=== PATIENT | male | born 1975 | race Caucasian/White ===

== ENCOUNTER 2020-04-10 18:38 | Emergency (ER) | payer OTHER ==
[~2020-04-10] VITALS: Ht 170.2 cm; Wt 81.6 kg
[2020-04-10] MEDS ORDERED: IV NS 0.9% 1,000 ML BAG IV ONE (19:00)
[2020-04-10] MEDS ORDERED: LORAZEPAM INJ 2 MG/ML VIAL IVP ONE (19:00)
[2020-04-10] MEDS ORDERED: LORAZEPAM INJ 2 MG/ML VIAL ONE (19:11)
--- NOTE | 2020-04-10 19:22 | NUR ---
VIANNEY FROM STREET TO ER BED 13. AAOX4. NOT IN RESP DISTRESS. AMBULATORY. CAME IN FOR BIZAARE BEHAVIOR. PER EMS REPORT, PT WAS FOUND BY [employer]. UPON ASSESSMENT, PT DENIES ANY THOUGHT OF HURTING HIMSELF NOR OTHERS. PT ADMITS TO USING METH EARLIER @ 1400. PT IS COOPERATIVE AND COMPLIANT. WAS AT THE BEDSIDE FOR EVAL. ORDERS RECEIVED NOTED AND CARRIED OUT. IV LINE OBTAINED ON R HAND 20G. BLOOD DRAWN AND GIVEN TO DATABASE PROGRAMMER ANALYST AT BEDSIDE. MEDICATED ORDERED. PT BEING MONITORED
[2020-04-10 19:24] LABS: BASOPHILS % (AUTO) 0.4 % (0.0-2.0); EOSINOPHILS % (AUTO) 0.5 % (0.0-6.0); HEMATOCRIT 41 % (39-51); HEMOGLOBIN 13.5 g/dL (13.5-17.5); LYMPHOCYTES # (AUTO) 0.8 /CMM (0.8-4.8); LYMPHOCYTES % (AUTO) 7.1 % (20.0-44.0); MEAN CORPUSCULAR HGB CONC 33 g/dl (31.0-36.0); MEAN CORPUSCULAR VOLUME 88 fL (80-96); MONOCYTES # (AUTO) 0.5 /CMM (0.1-1.30); MONOCYTES % (AUTO) 4.6 % (2.0-12.0); NEUTROPHILS # (AUTO) 9.7 /CMM (1.8-8.9); NEUTROPHILS % (AUTO) 87.4 % (43.0-81.0); PLATELET COUNT (AUTO) 251 /CMM (150-450); RED BLOOD CELL COUNT(AUTO) 4.66 MIL/uL (4.5-6.0)
[2020-04-10 19:49] LABS: CREATINE KINASE, TOTAL 913 U/L (39-308)
[2020-04-10 19:52] LABS: ACETAMINOPHEN < 2 ug/ml (10-30); ALANINE AMINOTRANSFERASE 40 U/L (12-78); ALBUMIN 3.8 g/dL (3.4-5.0); ALCOHOL, BLOOD < 3 mg/dL (0-0); ALKALINE PHOSPHATASE 87 U/L (46-116); ASPARTATE AMINOTRANSFERASE 30 U/L (15-37); BILIRUBIN,DIRECT 0.1 mg/dL (0.0-0.2); BILIRUBIN,TOTAL 0.2 mg/dL (0.2-1.0); CALCIUM, SERUM 9.1 mg/dL (8.5-10.1); CARBON DIOXIDE 23 mmol/L (21-32); CHLORIDE 107 mmol/L (98-107); CREATININE 1.5 mg/dL (0.6-1.3); GLUCOSE 109 mg/dL (74-106); POTASSIUM 3.7 mmol/L (3.5-5.1); SALICYLATE 0.9 mg/dL (2.8-20.0); SODIUM SERUM 142 mmol/L (136-145); TOTAL PROTEIN, SERUM 7.3 g/dL (6.4-8.2); UREA NITROGEN, BLOOD 13 mg/dL (7-18)
--- NOTE | 2020-04-10 21:05 | NUR ---
URINE COLLECTED AND SENT TO LAB.
[2020-04-10 21:57] LABS: APPEARANCE,URINE Clear (CLEAR); BILIRUBIN,URINE Negative (NEGATIVE); BLOOD, URINE Negative Ery/uL (NEGATIVE); COLOR,URINE Yellow (YELLOW); KETONES,URINE Negative (NEGATIVE); LEUKOCYTE ESTERASE ,URINE Negative (NEGATIVE); NITRITE, URINE Negative (NEGATIVE); PROTEIN,URINE Trace mg/dl (NEGATIVE); UGLUCOSE Negative (NEGATIVE); UROBILINOGEN,URINE 0.2 EU/dL (0.2)
[2020-04-10] MEDS ORDERED: IV NS 0.9% 1,000 ML IV ONE (22:00)
[2020-04-10 22:20] LABS: BACTERIA,URINE Rare /HPF (None Seen); RBC,URINE NONE SEEN /HPF (0-2); SQUAMOUS EPITHELIAL CELL,UR Few /HPF (None Seen); WBC,URINE NONE SEEN /HPF (0-3)
--- NOTE | 2020-04-10 22:24 | NUR ---
COVID SWAB COLLECTED AND SENT TO LAB
[2020-04-10] MEDS ORDERED: IV NS 0.9% 500 ML BAG IV ONE (22:30)
[2020-04-10 23:03] LABS: CALCIUM, SERUM 8.2 mg/dL (8.5-10.1); CREATININE 1.2 mg/dL (0.6-1.3); POTASSIUM 3.6 mmol/L (3.5-5.1)
--- NOTE | 2020-04-11 01:25 | NUR ---
Note [place] in ED - 04/11/20 at 0358 by SOPHIA Patient given written and verbal discharge instructions. Patient verbalizes understanding of instructions. Patient is ambulatory with steady gait. Refuses offer of skilled nursing placement. Patient given list of available shelters in surrounding area.
--- NOTE | 2020-04-11 02:51 | NUR ---
PT RESTING COMFORTABLY IN BED. VSS. NO ACUTE DISTRESS NOTED. WILL CONTINUE TO MONITOR. SITTER AT BEDSIDE FOR SAFETY
--- NOTE | 2020-04-11 04:11 | NUR ---
Patient given written and verbal discharge instructions. Patient verbalizes understanding of instructions. Patient is ambulatory with steady gait. Refuses offer of assisted placement. Patient given list of available shelters in surrounding area.
[2020-04-11 04:12] VITALS: BP 134/87
== END 2020-04-11 04:12 | disposition home or self-care (01) ==
LOC: ER 18:40
DX: T43.621A Poisoning by amphetamines, accidental (unintentional), initial encounter (principal); F15.121 Other stimulant abuse with intoxication delirium; Y92.89 Other specified places as the place of occurrence of the external cause; M62.82 Rhabdomyolysis; N19 Unspecified kidney failure; R00.0 Tachycardia, unspecified
CPT/HCPCS: 36415; 80048 ×2; 80076; 80305; 80307; 80329; 81001; 82550 ×2; 82553; 85025; 87081; 87426; 93005; 96361 ×2; 96374; 99284; G0480; J2060; J7030 ×2; 81000-TC